=== PATIENT | male | born 2005 | race Caucasian/White ===

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

== ENCOUNTER 2025-03-20 14:15 | Emergency (ER) | payer SELFPAY ==
[~2025-03-20] VITALS: Ht 182.8 cm; Wt 108.9 kg
[~2025-03-20 14:15] MED LIST changes: +AMOXICILLIN500 M2 PO
== END 2025-03-20 14:42 | disposition home or self-care (01) ==
LOC: ED 14:15
DX: Z04.89 Encounter for examination and observation for other specified reasons (principal)